=== PATIENT | male | born 1970 | race Asian ===

== ENCOUNTER → 2019-10-14 10:02 | Outpatient (CLI) | payer OTHER, SELFPAY ==
--- NOTE | 2019-10-14 | DI.MRI.S_ITS ---
PROCEDURE: MR LUMBAR SPINE WO CON INDICATIONS: . TECHNIQUE: Noncontrast sagittal T1 spin echo and T2 fast echo, sagittal STIR, axial T1 and T2 fast spin echo through the lumbar spine. In cases with scoliosis, additional coronal T2 fast spin echo may be performed. COMPARISON: None. FINDINGS: Image quality: Excellent. Alignment and Curvature: There is normal bony alignment. Bone Marrow: Marrow is of normal overall signal. No acute vertebral body compression fractures. Spinal Cord: Conus medullaris terminates at the L1 level. Visualized cord demonstrates normal signal and size. Paraspinous Soft Tissues: No paravertebral masses. This patient has short pedicles, with a degree of baseline neural foraminal narrowing. T12-L1: Normal appearance. L1-L2: The disc height is well preserved. There is loss of disc signal. Mild disc bulge is seen. There is moderate right-sided and minimal left-sided neural foraminal narrowing seen. No significant central canal narrowing is seen. L2-L3: The disc height and disc signal are well-preserved. Mild bilateral neural foraminal narrowing is seen. Minimal bilateral facet hypertrophy is seen. No central canal narrowing is seen. L3-L4: The disc height is well preserved. There is loss of disc signal. Moderate disc bulge is seen, which is eccentric to the left. There is moderate to severe left-sided and at least moderate right-sided neural foraminal narrowing seen. There is a degree of compression seen upon the exiting nerve roots. Mild central canal narrowing is seen. L4-L5: Moderate loss of disc height and disc signal can be seen. Moderate disc bulge is seen, which is eccentric to the right. There is a central disc protrusion. Moderate facet hypertrophy is seen. There is moderate to severe bilateral neural foraminal narrowing seen, right worse than left. There is a degree of compression seen upon the exiting nerve roots. Mild central canal narrowing is seen. L5-S1: No significant abnormality is seen. IMPRESSION: Multiple levels of lumbar spine degenerative changes are seen, which are most prominent at the L4-L5 level, where there is moderate to severe bilateral neural foraminal narrowing. Dictated by: Raj Yan M.D. on 10/15/2019 at 15:48 Approved by: Raj Yan M.D. on 10/15/2019 at 16:16
== END ==
PROVIDERS: PCP Family Medicine; Referring Provider Family Medicine; Visit Provider Family Medicine
DX: M54.5 Low back pain (principal); M47.816 Spondylosis without myelopathy or radiculopathy, lumbar region; M48.061 Spinal stenosis, lumbar region without neurogenic claudication
CPT/HCPCS: 72148

== ENCOUNTER → 2019-11-25 14:20 | Outpatient (CLI) | payer OTHER, SELFPAY ==
[2019-11-27 01:28] LABS: COVID19 Sendout Not Detected (Not Detect)
== END ==
PROVIDERS: PCP Family Medicine; Visit Provider Nurse Practitioner
DX: Z11.59 Encounter for screening for other viral diseases (principal)
CPT/HCPCS: 87635